=== PATIENT | female | born 1960 | race Caucasian/White ===

== ENCOUNTER 2021-08-09 09:33 | Outpatient (CLI) | payer MEDICARE | END 2021-08-09 09:34 | disposition home or self-care (01) | LOC: CSHMRI 09:33 | PROVIDERS: ATTEND Internal Medicine Gastroenterology | DX: R10.13 Epigastric pain (principal); Z90.49 Acquired absence of other specified parts of digestive tract | CPT/HCPCS: 74183; 82565 ==